=== PATIENT | female | born 1935 | race Caucasian/White ===

== ENCOUNTER 2018-01-23 10:00 | Emergency (ER) | payer MEDICARE, BC ==
[~2018-01-23] VITALS: Ht 165.1 cm; Wt 117.0 kg
[~2018-01-23 10:00] MED LIST: CELE-193 PO; LOSA50TA3 PO
[2018-01-23 11:15] VITALS: BP 118/68
== END 2018-01-23 11:19 | disposition home or self-care (01) ==
LOC: ER 10:00
DX: G89.29 Other chronic pain (principal); M25.571 Pain in right ankle and joints of right foot; I10 Essential (primary) hypertension; J44.9 Chronic obstructive pulmonary disease, unspecified; M19.90 Unspecified osteoarthritis, unspecified site; Z88.5 Allergy status to narcotic agent; Z79.899 Other long term (current) drug therapy; Z60.2 Problems related to living alone; W19.XXXA Unspecified fall, initial encounter; Y93.89 Activity, other specified; Y92.89 Other specified places as the place of occurrence of the external cause; Y99.8 Other external cause status
CPT/HCPCS: 29515; 99283